=== PATIENT | male | born 1945 | race Caucasian/White ===

== ENCOUNTER 2022-02-16 13:13 | Inpatient (IN) ==
[2022-02-16 15:26] LABS: Basophils % 0.2 %; Eosinophils # 0.1 K/mcL (0.0-0.6); Eosinophils % 0.6 %; Hematocrit 26.7 % (37.5-50.1); Immature Granulocytes % 0.7 % (0-4); Immature Platelets 6.6 % (1.1-6.1); Lymphocytes # 1.2 K/mcL (0.6-4.6); Mean Corpuscular HGB Conc 33.7 g/dL (31.6-35.5); Mean Corpuscular Hemoglobin 31.9 pg (28.0-33.3); Mean Corpuscular Volume 94.7 fL (83.0-100.0); Mean Platelet Volume 12.8 fL (9.4-12.4); Monocytes # 1.1 K/mcL (0.0-1.3); Monocytes % 10.4 %; Neutrophils # 7.8 K/mcL (1.6-8.9); Red Blood Count 2.82 M/mcL (4.19-5.50); Red Cell Distribution Width 16.2 % (11.5-14.5); Segmented Neutrophils % 76.1 %; White Blood Count 10.2 K/mcL (4.3-11.1)
[2022-02-16 15:37] LABS: Platelet Count 51 K/mcL (140-400)
[2022-02-16 15:47] LABS: Albumin 3.1 g/dL (3.5-5.7); Albumin/Globulin Ratio 1.5 (1.1-2.2); Bilirubin,Direct 1.1 mg/dL (0.0-0.2); Bilirubin,Indirect 2.3 mg/dL (0.0-1.0); Bilirubin,Total 3.4 mg/dL (0.3-1.0); Calcium 8.7 mg/dL (8.6-10.3); Globulin 2.1 g/dL (2.4-3.5); Potassium 4.2 mEq/L (3.5-5.1); Total Protein 5.2 g/dL (6.4-8.9)
[2022-02-16 16:04] LABS: Bacteria,Urine Few per hpf (None-Few); Bilirubin,Urine Negative (Negative); Blood,Urine Negative (Negative); Clarity,Urine Turbid (Clear); Color,Urine Yellow (Yellow); Glucose,Urine (UA) Normal (Normal); Hyaline Casts,Urine Many per lpf (None Seen); Ketones,Urine Trace mg/dL (Negative); Leukocyte Esterase,Urine Moderate (Negative); Mucus,Urine Few per lpf (None-Few); Nitrite,Urine Negative (Negative); Protein,Urine 30 mg/dL (Neg-Trace); RBC,Urine 0-3 per hpf (0-3); Specific Gravity,Urine 1.025 (1.010-1.025); Squamous Epithelial Cell,Urine Few per hpf (None-Few); Urobilinogen,Urine Normal (Normal); WBC,Urine 15-30 per hpf (0-3)
[2022-02-16] MEDS ORDERED: 0.9 % Sodium Chloride 1,000 ML IV ONE (16:04)
[2022-02-16] MEDS ORDERED: Iopamidol - 370 500 ML MLS IVP ONE (16:37)
[2022-02-16] MEDS ORDERED: cefTRIAXone 1,000 MG in Water for inj. (sterile) 10 ML IVP ONE (18:39)
[2022-02-16] MEDS ORDERED: MetroNIDAZOLE 500 MG/100 ML 500 MG/100 ML BAG IVPB ONE (18:39)
[2022-02-16 19:58] LABS: INR 1.5; Prothrombin Time 16.5 Seconds (9.4-12.1)
[2022-02-16] MEDS ORDERED: *HR* Promethazine 25 MG/ML VIAL IM PRN (20:07)
[2022-02-16] MEDS ORDERED: *HR* OxyCODONE Immed Rel 5 MG TABLET PO PRN (20:07)
[2022-02-16] MEDS ORDERED: Acetaminophen 325 MG TABLET PO PRN (20:07)
[2022-02-16] MEDS ORDERED: *HR* HYDROcodone/Acet 5/325 mg TABLET PO PRN (20:07)
[2022-02-16] MEDS ORDERED: Ondansetron 4 MG/2 ML VIAL IVP PRN (20:07)
[2022-02-16] MEDS ORDERED: Melatonin 3 MG TABLET PO PRN (20:07)
[2022-02-16] MEDS ORDERED: Naloxone 0.4 MG/ML INJ IVP PRN (20:07)
[2022-02-16] MEDS ORDERED: D5% in Water 1,000 ML IVC PRN (20:20)
[2022-02-16] MEDS ORDERED: *HR* Dextrose 50 % in Water (Syg) 50 ML SYRINGE IVP PRN (20:20)
[2022-02-16] MEDS ORDERED: Dextrose Gel 15 GM/37.5 ML TUBE PO PRN ×2 (20:20)
[2022-02-16] MEDS: 0.9 % Sodium Chloride 1,000 ML IVC SCH (21:27)
[2022-02-16 21:59] LABS: Protein/Creatinine Ratio,Urine 0.14 mg/mg (0.00-0.20); Sodium, Urine 24.6 mEq/L
[2022-02-17] MEDS: Insulin LISPRO 300 UNITS/3 ML VIAL SUBQ SCH ×2 (00:20→05:36)
[2022-02-17 01:52] LABS: Basophils % 0.3 %; Red Blood Count 2.64 M/mcL (4.19-5.50); Red Cell Distribution Width 15.9 % (11.5-14.5)
[2022-02-17 01:54] LABS: Eosinophils # 0.1 K/mcL (0.0-0.6); Eosinophils % 1.3 %; Hematocrit 25.2 % (37.5-50.1); Hemoglobin 8.3 g/dL (12.9-16.9); Immature Granulocytes % 0.2 % (0-4); Immature Platelets 4.7 % (1.1-6.1); Lymphocytes # 0.9 K/mcL (0.6-4.6); Lymphocytes % 15.7 %; Mean Corpuscular HGB Conc 32.9 g/dL (31.6-35.5); Mean Corpuscular Hemoglobin 31.4 pg (28.0-33.3); Mean Corpuscular Volume 95.5 fL (83.0-100.0); Mean Platelet Volume 13.3 fL (9.4-12.4); Monocytes # 0.7 K/mcL (0.0-1.3); Monocytes % 12.4 %; Neutrophils # 4.2 K/mcL (1.6-8.9); Segmented Neutrophils % 70.1 %
[2022-02-17 01:57] LABS: Platelet Count 43 K/mcL (140-400)
[2022-02-17 02:00] LABS: INR 1.4; Prothrombin Time 15.9 Seconds (9.4-12.1)
[2022-02-17 02:12] LABS: Albumin 2.7 g/dL (3.5-5.7); Albumin/Globulin Ratio 1.2 (1.1-2.2); Bilirubin,Total 2.3 mg/dL (0.3-1.0); Calcium 8.1 mg/dL (8.6-10.3); Globulin 2.2 g/dL (2.4-3.5); Magnesium 1.3 mg/dL (1.6-2.6); Potassium 3.8 mEq/L (3.5-5.1); Total Protein 4.9 g/dL (6.4-8.9)
[2022-02-17] MEDS: 0.9 % Sodium Chloride 1,000 ML IVC SCH (08:08)
[2022-02-17] MEDS: Ampicillin/Sulbactam 3,000 MG in 0.9 % Sodium Chloride Mini Bag 100 ML IVPB SCH ×2 (12:37→17:16)
[2022-02-17 15:40] LABS: % Iron Saturation 4 % (20-55); Iron 11 mcg/dL (65-175); Transferrin 176 mg/dL (203-362)
[2022-02-17] MEDS: PROPYLENE GLYCOL OP SCH ×2 (15:53→20:39)
[2022-02-17] MEDS: PEG OP SCH ×2 (15:53→20:39)
[2022-02-17 15:54] LABS: Ferritin 282 ng/mL (20-250)
[2022-02-17] MEDS: Magnesium Oxide 400 MG TABLET PO SCH (20:38)
[2022-02-17] MEDS: Lactulose Oral Soln 20 GM/30 ML UDC PO SCH (20:38)
[2022-02-18] MEDS: Ampicillin/Sulbactam 3,000 MG in 0.9 % Sodium Chloride Mini Bag 100 ML IVPB SCH ×4 (00:12→17:00)
[2022-02-18 03:18] LABS: Hemoglobin 8.2 g/dL (12.9-16.9); Mean Corpuscular Volume 93.5 fL (83.0-100.0); Red Cell Distribution Width 15.9 % (11.5-14.5)
[2022-02-18 03:20] LABS: Hematocrit 24.4 % (37.5-50.1); Mean Corpuscular HGB Conc 33.6 g/dL (31.6-35.5); Mean Corpuscular Hemoglobin 31.4 pg (28.0-33.3); Mean Platelet Volume 11.1 fL (9.4-12.4); Red Blood Count 2.61 M/mcL (4.19-5.50); White Blood Count 4.4 K/mcL (4.3-11.1)
[2022-02-18 03:37] LABS: BUN/Creatinine Ratio 24 (6-26); Blood Urea Nitrogen 29 mg/dL (8-23); Calcium 7.7 mg/dL (8.6-10.3); Carbon Dioxide 18 mEq/L (23-29); Chloride 110 mEq/L (98-107); Glucose 118 mg/dL (70-105); Osmolality,Calculated 287 (280-300); Potassium 3.6 mEq/L (3.5-5.1); Sodium 135 mEq/L (136-145); eGFR For African Americans > 60 (> 60); eGFR For Non-African Americans 58 (> 60)
[2022-02-18] MEDS: Cholecalciferol (D-3) 1,000 UNIT (25MCG) TABLET PO SCH (08:36)
[2022-02-18] MEDS: Aspirin Enteric Coated 81 MG Tablet PO SCH (08:36)
[2022-02-18] MEDS: Isosorbide MONOnitrate (24 HR) 30 MG TAB.ER.24H PO SCH (08:36)
[2022-02-18] MEDS: allopurinoL 300 MG TABLET PO SCH (08:36)
[2022-02-18] MEDS: PEG OP SCH (08:37)
[2022-02-18] MEDS: PROPYLENE GLYCOL OP SCH (08:37)
[2022-02-18] MEDS: Lactulose Oral Soln 20 GM/30 ML UDC PO SCH ×2 (08:37→21:16)
[2022-02-18] MEDS: Magnesium Oxide 400 MG TABLET PO SCH ×2 (08:37→21:14)
[2022-02-18] MEDS ORDERED: Iron Sucrose Complex 400 MG in 0.9 % Sodium Chloride 250 ML IVPB ONE (10:24)
[2022-02-18] MEDS: Artificial Tears SOLN 15 ML BOTTLE OP SCH (14:33)
[2022-02-19] MEDS: Artificial Tears SOLN 15 ML BOTTLE OP SCH ×4 (00:22→23:32)
[2022-02-19] MEDS: Ampicillin/Sulbactam 3,000 MG in 0.9 % Sodium Chloride Mini Bag 100 ML IVPB SCH ×5 (00:22→23:41)
[2022-02-19] MEDS: Lactulose Oral Soln 20 GM/30 ML UDC PO SCH ×2 (09:11→23:43)
[2022-02-19] MEDS: Cholecalciferol (D-3) 1,000 UNIT (25MCG) TABLET PO SCH (09:11)
[2022-02-19] MEDS: Aspirin Enteric Coated 81 MG Tablet PO SCH (09:12)
[2022-02-19] MEDS: Magnesium Oxide 400 MG TABLET PO SCH ×2 (09:12→23:31)
[2022-02-19] MEDS: allopurinoL 300 MG TABLET PO SCH (09:12)
[2022-02-19] MEDS: Isosorbide MONOnitrate (24 HR) 30 MG TAB.ER.24H PO SCH (09:12)
[2022-02-19] MEDS ORDERED: Gadolinium Contrast Agent (WT Based) IV PRN (11:19)
[2022-02-20] MEDS: Ampicillin/Sulbactam 3,000 MG in 0.9 % Sodium Chloride Mini Bag 100 ML IVPB SCH ×3 (05:23→17:42)
[2022-02-20] MEDS: Magnesium Oxide 400 MG TABLET PO SCH (10:28)
[2022-02-20] MEDS: Cholecalciferol (D-3) 1,000 UNIT (25MCG) TABLET PO SCH (10:28)
[2022-02-20] MEDS: Aspirin Enteric Coated 81 MG Tablet PO SCH (10:28)
[2022-02-20] MEDS: Isosorbide MONOnitrate (24 HR) 30 MG TAB.ER.24H PO SCH (10:28)
[2022-02-20] MEDS: allopurinoL 300 MG TABLET PO SCH (10:28)
[2022-02-20] MEDS: Lactulose Oral Soln 20 GM/30 ML UDC PO SCH (10:28)
[2022-02-20] MEDS: Artificial Tears SOLN 15 ML BOTTLE OP SCH ×2 (10:30→13:18)
[2022-02-20 11:21] VITALS: O2SAT 98
[2022-02-20 18:56] VITALS: BP 132/72; PULSE 65; TEMP 97.4
== END 2022-02-20 19:27 | disposition home or self-care (01) | DRG 391 ==
LOC: EMEROOARM 13:13 → 3ANU 13:13 → SUATTDRO 02-18 15:36
PROVIDERS: ADMIT Internal Medicine; ATTEND Internal Medicine